=== PATIENT | male | born 1955 ===

== ENCOUNTER 2022-05-31 06:47 | Day surgery (SDC) | payer MEDICARE, BC ==
[~2022-05-31] VITALS: Ht 188 cm; Wt 106.0 kg
[~2022-05-31 06:47] MED LIST: AMLO5 PO; ATOR10 PO; ELIQUIS5 M2 PO; FINA5 PO; LISI20 PO; METO50ER PO; OLUMIANT2 MG PO; TAMS.4ER PO
--- NOTE | 2022-05-31 08:00 | NUR ---
Pt and verbalized understanding of written and verbal d/c inst. [facility] /s difficuly.
--- NOTE | 2022-05-31 08:00 | NUR ---
Linq removed by Dr Schneider. Pt tolerated procedure well.
== END 2022-05-31 22:44 | disposition home or self-care (01) ==
LOC: MHTC 06:47
DX: Z45.09 Encounter for adjustment and management of other cardiac device (principal); I10 Essential (primary) hypertension; E78.5 Hyperlipidemia, unspecified; I48.91 Unspecified atrial fibrillation; Z79.899 Other long term (current) drug therapy; Z79.01 Long term (current) use of anticoagulants; Z87.891 Personal history of nicotine dependence
CPT/HCPCS: 33286; J0690; J7040